=== PATIENT | female | born 1995 | race Caucasian/White ===

== ENCOUNTER 2019-12-20 12:22 | Emergency (ER) | payer MEDICAID ==
[2019-12-20 12:35] VITALS: BP 127/67; PULSE 109
--- NOTE | 2019-12-20 13:02 | EDM.PDOC ---
ED HPI GENERAL MEDICAL PROBLEM - General Chief Complaint: General Stated Complaint: INFECTION IN HER GUMS Time Seen by Provider: 12/20/19 12:45 Source of Information: Reports: Patient History Limitations: Reports: No Limitations - History of Present Illness INITIAL COMMENTS - FREE TEXT/NARRATIVE: 24-year-old female presents to the emergency room with dental caries and a sore mouth and left throat swelling over 24 hours. Patient reports soreness around her gums both her upper and lower mouth. She has not seen a dentist for some time. She was planning to make an appointment this week but has not followed through. She has been noticed increasing pain discomfort over the weekend and with some swelling along her left neck. She is 24 weeks . No other complaints are voiced. She denies any fever or chills. She denies any difficulty swallowing. Onset: Gradual Duration: Day(s):, Getting Worse Location: Reports: Neck Quality: Reports: Ache Severity: Moderate Improves with: Reports: None Worsens with: Reports: None Associated Symptoms: Reports: No Other Symptoms Gums Pain Score (Numeric/FACES): 8 - Related Data Allergies Allergy/AdvReac Type Severity Reaction Status Date / Time No Known Allergies Allergy Verified 12/20/19 12:35 Past Medical History [employer] History: Reports: Psychiatric History: Reports: ADD Social & Family History - Family History Respiratory: Reports: Asthma Psychiatric: Reports: ADD, ADHD, Anxiety, Depression Immunologic: Reports: None Oncologic: Reports: Ovarian - Tobacco Use Smoking Status *Q: Current Every Day Smoker Years of Tobacco use: 10 Packs/Tins Daily: 0.3 - Caffeine Use Caffeine Use: Reports: Coffee - Recreational Drug Use Recreational Drug Use: No ED ROS ENT - Review of Systems Review Of Systems: Comprehensive ROS is negative, except as noted in HPI. ED EXAM, ENT - Physical Exam Exam: See Below Exam Limited By: No Limitations General Appearance: Alert, WD/WN, No Apparent Distress Eye Exam: Bilateral Eye: EOMI, PERRL (pupils equal) Ears: Normal TMs Nose: Normal Inspection, Normal Mucousa, No Blood Mouth/Throat: Normal Lips, Dental Abcess (Dental caries are noted in the upper and lower mouth. Mild gingivitis and inflammation around the gums is seen), Dental Tenderness. No: Normal Teeth, Peritonsillar Mass, Throat Swelling, Tonsillar Erythema, Tonsillar Exudates, Tonsillar Swelling Head: Atraumatic, Normocephalic Neck: Lymphadenopathy (L), Tender Lateral. No: Lymphadenopathy (R) Respiratory/Chest: No Respiratory Distress Extremities: Normal Inspection Neurological: Alert, Oriented, Normal Cognition, Normal Gait, No Motor/Sensory Deficits Psychiatric: Normal Affect, Normal Mood Skin: Warm, Dry, Intact, Normal Color, No Rash Course - Vital Signs Last Recorded V/S: Last Vital Signs Temp 97.2 F 12/20/19 12:31 Pulse 109 H 12/20/19 12:31 Resp 18 12/20/19 12:31 BP 127/67 12/20/19 12:31 Pulse Ox 96 12/20/19 12:31 - Orders/Labs/Meds Orders: Active Orders 24 hr Category Date Time Status STREP SCRN A RAPID W CULT CONF [RM] Stat Lab 12/20/19 12:38 Ordered Departure - Departure Time of Disposition: 13:20 Disposition: Home, Self-Care 01 Condition: Good Clinical Impression: Caries involving multiple surfaces of tooth, Gingivitis due to dental plaque with local contributing factor - Discharge Information Referrals: Kellee Hansen, [employer] [Primary Care Provider] - Sepsis Event Note (ED) - Evaluation Sepsis Screening Result: No Definite Risk - Focused Exam Vital Signs: Vital Signs Temp Pulse Resp BP Pulse Ox 12/20/19 12:31 97.2 F 109 H 18 127/67 96 - My Orders Last 24 Hours: My Active Orders 12/20/19 12:38 STREP SCRN A RAPID W CULT CONF [RM] Stat - Assessment/Plan Last 24 Hours: My Active Orders 12/20/19 12:38 STREP SCRN A RAPID W CULT CONF [RM] Stat Assessment:: Dental caries involving multiple teeth Gingivitis Plan: Penicillin V 500mg 4 times day 10-day for dental carry Tylenol 650 mg every 8 hours as needed for pain. Follow-up with your dentist next week.
[2019-12-20] MEDS ORDERED: Penicillin V Potassium 250 MG Tab PO ONE (13:15)
== END 2019-12-20 13:20 | disposition home or self-care (01) ==
LOC: KA.ED 12:22
DX: O99.612 Diseases of the digestive system complicating pregnancy, second trimester (principal); K05.10 Chronic gingivitis, plaque induced; K02.9 Dental caries, unspecified; O99.332 Smoking (tobacco) complicating pregnancy, second trimester; F17.210 Nicotine dependence, cigarettes, uncomplicated; Z3A.24 24 weeks gestation of pregnancy
CPT/HCPCS: 87081; 87430; 99283; A9270-GY